=== PATIENT | female | born 1990 | race Caucasian/White ===

== ENCOUNTER 2017-10-09 22:23 | Emergency (ER) | payer OTHER ==
[~2017-10-09] VITALS: Ht 167.6 cm; Wt 59.0 kg
[~2017-10-09 22:23] MED LIST: AMOX/K CLAV875 M1 PO; AMOXICILLIN/CL875 MG OR; AMOXICILLIN875 MG OR; AMOXICILLIN875 MG PO; CIPROFLOXACN500 MG PO; KEFLEX500 MG PO; METRONIDAZOL500 MG PO; PREVIFE2 PO; SPRINTEC 2828 DAY PO; TET/DIP TOX1 ML IM; ULTRAM50 M1 PO; ZOFRAN ODT4 MG PO; ZOFRAN8 MG OR; [UNRECOGNIZED DRUG - CODE] PO
[2017-10-09 22:47] LABS: URINE BILIRUBIN - DIPSTICK NEGATIVE (NEGATIVE); URINE BLOOD DIPSTICK TRACE-INTACT (NEGATIVE); URINE COLOR YELLOW; URINE GLUCOSE - DIPSTICK NEGATIVE (NEGATIVE); URINE KETONE NEGATIVE (NEGATIVE); URINE LEUK ESTERASE NEGATIVE (NEGATIVE); URINE NITRITE - DIPSTICK NEGATIVE (Negative); URINE PH 6.5 (4.5-8.0); URINE PROTEIN - DIPSTICK NEGATIVE (NEG-TRACE); URINE UROBILINOGEN - DIPSTICK 0.2 E.U./dL (0.2)
[2017-10-09 22:48] LABS: URINE CLARITY SL CLOUDY
[2017-10-09] MEDS ORDERED: CEPHALEXIN500 MG PO (22:56)
[2017-10-09] MEDS ORDERED: BACTRIM DS1 TAB PO (22:56)
[2017-10-09 23:17] VITALS: BP 148/86
== END 2017-10-09 23:20 | disposition home or self-care (01) | DRG 607 ==
LOC: ED 22:23
PROVIDERS: Emergency Medicine
DX: S80.861A Insect bite (nonvenomous), right lower leg, initial encounter (principal); L03.115 Cellulitis of right lower limb; W57.XXXA Bitten or stung by nonvenomous insect and other nonvenomous arthropods, initial encounter